=== PATIENT | male | born 1995 | race Two or more races ===

== ENCOUNTER 2021-07-24 01:09 | Emergency (ER) | payer OTHER ==
[~2021-07-24] VITALS: Ht 180.3 cm; Wt 99.7 kg
[2021-07-24 01:12] VITALS: BP 139/82
[2021-07-24] MEDS ORDERED: GLYC1MED48 TP (02:17)
== END 2021-07-24 02:26 | disposition home or self-care (01) ==
LOC: EMS 01:12
DX: K64.5 Perianal venous thrombosis (principal); F17.210 Nicotine dependence, cigarettes, uncomplicated
CPT/HCPCS: 99281; 99282; Z7502